=== PATIENT | female | born 1955 | race African-American/Black ===

== ENCOUNTER 2018-02-02 09:24 | Observation (INO) ==
[2018-02-02 12:22] LABS: Basophils # 0.1 10*3/uL (0.0-0.2); Basophils % 0.9 % (0.0-0.8); Eosinophils # 0.2 10*3/uL (0.0-0.87); Eosinophils % 4.1 % (0.00-10.9); Hematocrit 38.2 VOL% (35.7-47.0); Hemoglobin 12.8 GM/DL (12.0-16.0); Immature Granulocytes % 0.2 %; Immature Granulocytes Absolute 0.01 #; Lymphocytes # 3.1 10*3/uL (1.4-4.0); Lymphocytes % 54.9 % (21.3-54.2); Mean Corpuscular HGB Conc 33.5 GM/DL (32-36); Mean Corpuscular Hemoglobin 33 PG (27-34); Mean Corpuscular Volume 98.7 FL (87-102); Mean Platelet Volume 10.6 FL (9.6-12.0); Monocytes # 0.3 10*3/uL (0.11-0.8); Monocytes % 5.7 % (1.7-12.7); Neutrophils # 1.9 10*3/uL (1.4-7.4); Neutrophils % 34.2 % (38.7-73.9); Platelet Count 229 T/CUMM (130-400); Red Blood Count 3.87 MC/CUMM (3.8-5.5); Red Cell Distribution Width 12.3 % (9.3-17.3); White Blood Count 5.6 T/CUMM (4-12)
[2018-02-02 12:32] LABS: PT Patient Result 10.5 SECS
[2018-02-02 12:41] LABS: Hypochromasia 1+; Platelet Estimate Adequate
[2018-02-02 12:44] LABS: Albumin 3.8 G/DL (3.4-5.0); Bilirubin,Total 0.6 MG/DL (0.2-1.0); Calcium 9.3 MG/DL (8.5-10.1); Osmolality,Calculated 281.3 MOS/KG (273-304); Potassium 3.9 MMOL/L (3.5-5.1); Total Protein 7.4 G/DL (6.4-8.3)
[2018-02-02 12:45] LABS: Troponin I Only < 0.015 NG/ML (0.00-0.045)
[2018-02-02] MEDS ORDERED: MORPHINE 4 MG/1 ML VIAL IV PRN (17:12)
[2018-02-02] MEDS ORDERED: ACETAMINOPHEN 325 MG TABLET PO PRN (17:12)
[2018-02-02] MEDS ORDERED: ONDANSETRON 4 MG/2 ML VIAL IV PRN (17:12)
[2018-02-03 04:48] LABS: Basophils % 0.6 % (0.0-0.8); Eosinophils # 0.2 10*3/uL (0.0-0.87); Eosinophils % 4.3 % (0.00-10.9); Hematocrit 36.3 VOL% (35.7-47.0); Immature Granulocytes % 0.2 %; Immature Granulocytes Absolute 0.01 #; Lymphocytes # 2.7 10*3/uL (1.4-4.0); Lymphocytes % 54.5 % (21.3-54.2); Mean Corpuscular HGB Conc 33.1 GM/DL (32-36); Mean Corpuscular Hemoglobin 33 PG (27-34); Mean Corpuscular Volume 99.2 FL (87-102); Monocytes # 0.3 10*3/uL (0.11-0.8); Monocytes % 6.7 % (1.7-12.7); Neutrophils # 1.7 10*3/uL (1.4-7.4); Neutrophils % 33.7 % (38.7-73.9); Platelet Count 197 T/CUMM (130-400); Red Blood Count 3.66 MC/CUMM (3.8-5.5); Red Cell Distribution Width 12.3 % (9.3-17.3); White Blood Count 4.9 T/CUMM (4-12)
[2018-02-03 05:16] LABS: Calcium 8.7 MG/DL (8.5-10.1); Osmolality,Calculated 284.1 MOS/KG (273-304); Potassium 3.7 MMOL/L (3.5-5.1); Risk Ratio 3.8; VLDL CHOLESTEROL 38.2 MG/DL
[2018-02-03 05:39] LABS: Atypical Lymphocytes Few; Eosinophils 5 % (0-10); Lymphocytes 52 % (20-55); Platelet Estimate Adequate; Segmented Neutrophils 35 % (50-85); Total Cells Counted 100
[2018-02-03 05:40] LABS: Polychromasia Slight
[2018-02-03] MEDS: SODIUM CHLORIDE 0.45% 1,000 ML IV SCH ×2 (08:00→12:19)
[2018-02-03] MEDS ORDERED: PANTOPRAZOLE 40 MG TABLET PO SCH (09:00)
[2018-02-03] MEDS ORDERED: ASPIRIN EC 81 MG TABLET PO SCH (09:00)
[2018-02-03 11:43] VITALS: BP 129/82
== END 2018-02-03 14:09 | disposition home or self-care (01) ==
LOC: N.EDINP 09:24 → N.ED 09:24 → SUATTDRO 16:37 → N.5E 19:44
PROVIDERS: ADMIT Internal Medicine; ATTEND Internal Medicine

== ENCOUNTER 2018-11-04 14:29 | Inpatient (IN) ==
[2018-11-04] MEDS ORDERED: ACETAMINOPHEN 325 MG TABLET PO PRN (15:09)
[2018-11-04] MEDS ORDERED: BISACODYL 5 MG TABLET PO PRN (15:09)
[2018-11-04] MEDS ORDERED: ALBUTEROL/IPRATROPIUM 3 ML NEB RESP TX PRN (15:09)
[2018-11-04] MEDS ORDERED: HYDROmorphone 2 MG/1 ML VIAL IV PRN (15:09)
[2018-11-04] MEDS ORDERED: ONDANSETRON 4 MG/2 ML VIAL IV PRN (15:09)
[2018-11-04] MEDS ORDERED: traMADol 50 MG TABLET PO PRN (15:15)
[2018-11-04 15:42] LABS: Basophils # 0.1 10*3/uL (0.0-0.2); Basophils % 0.9 % (0.0-0.8); Eosinophils # 0.2 10*3/uL (0.0-0.87); Eosinophils % 3.4 % (0.00-10.9); Hematocrit 37.5 VOL% (35.7-47.0); Hemoglobin 12.2 GM/DL (12.0-16.0); Immature Granulocytes % 0.2 %; Immature Granulocytes Absolute 0.01 #; Lymphocytes # 2.4 10*3/uL (1.4-4.0); Lymphocytes % 40.5 % (21.3-54.2); Mean Corpuscular HGB Conc 32.5 GM/DL (32-36); Mean Corpuscular Hemoglobin 32 PG (27-34); Mean Corpuscular Volume 98.7 FL (87-102); Mean Platelet Volume 9.7 FL (9.6-12.0); Monocytes # 0.3 10*3/uL (0.11-0.8); Monocytes % 4.8 % (1.7-12.7); Neutrophils # 2.9 10*3/uL (1.4-7.4); Neutrophils % 50.2 % (38.7-73.9); Platelet Count 252 T/CUMM (130-400); Red Cell Distribution Width 13.4 % (9.3-17.3); White Blood Count 5.9 T/CUMM (4-12)
[2018-11-04 16:04] LABS: Osmolality,Calculated 282.3 MOS/KG (273-304); Potassium 3.7 MMOL/L (3.5-5.1)
[2018-11-04] MEDS: PIPERACILLIN/TAZOBACTAM 3,375 MG in SODIUM CHLORIDE 0.9% 100 ML IV SCH ×2 (16:08→23:25)
[2018-11-04] MEDS: LACTATED RINGERS 1,000 ML IV SCH (18:20)
[2018-11-04] MEDS: GABAPENTIN 300 MG CAPSULE PO SCH (21:48)
[2018-11-04] MEDS: ATORVASTATIN 40 MG TABLET PO SCH (21:48)
[2018-11-04] MEDS: PREGABALIN 50 MG CAPSULE PO SCH (21:48)
[2018-11-05] MEDS ORDERED: FAMOTIDINE 20 MG TABLET PO ONE (06:00)
[2018-11-05] MEDS ORDERED: DIAZEPAM 5 MG TABLET PO ONE (06:00)
[2018-11-05] MEDS ORDERED: LIDOCAINE 1%/EPI INJ 20 ML VIAL ONE (07:59)
[2018-11-05] MEDS: PIPERACILLIN/TAZOBACTAM 3,375 MG in SODIUM CHLORIDE 0.9% 100 ML IV SCH ×3 (08:02→23:08)
[2018-11-05] MEDS ORDERED: ONDANSETRON 4 MG/2 ML VIAL ONE (08:51)
[2018-11-05] MEDS ORDERED: KETOROLAC 30 MG/1 ML VIAL ONE (08:51)
[2018-11-05] MEDS ORDERED: DEXAMETHASONE 4 MG/1 ML VIAL ONE (08:51)
[2018-11-05] MEDS ORDERED: MIDAZOLAM 2 MG/2 ML VIAL ONE (08:51)
[2018-11-05] MEDS ORDERED: fentaNYL 100 MCG/2 ML VIAL ONE (08:51)
[2018-11-05] MEDS ORDERED: PROPOFOL 200 MG/20 ML VIAL IV ONE (08:51)
[2018-11-05] MEDS: POTASSIUM CHLORIDE 20 MEQ TABLET PO SCH (11:18)
[2018-11-05] MEDS: FLUTICASONE 50 MCG NASAL SPRAY 16 GM BOTTLE BOTH NARES SCH (11:18)
[2018-11-05] MEDS: FUROSEMIDE 40 MG TABLET PO SCH (11:18)
[2018-11-05] MEDS: CETIRIZINE 10 MG TABLET PO SCH (11:19)
[2018-11-05] MEDS: GABAPENTIN 300 MG CAPSULE PO SCH ×2 (11:19→20:50)
[2018-11-05] MEDS: LISINOPRIL 20 MG TABLET PO SCH (11:19)
[2018-11-05] MEDS: PREGABALIN 50 MG CAPSULE PO SCH ×2 (11:19→20:50)
[2018-11-05] MEDS: LEVOTHYROXINE 25 MCG TABLET PO SCH (11:19)
[2018-11-05] MEDS: PANTOPRAZOLE 40 MG TABLET PO SCH (11:19)
[2018-11-05] MEDS: ATORVASTATIN 40 MG TABLET PO SCH (20:50)
[2018-11-06] MEDS: LACTATED RINGERS 1,000 ML IV SCH ×3 (05:10→16:18)
[2018-11-06] MEDS: GABAPENTIN 300 MG CAPSULE PO SCH (10:39)
[2018-11-06] MEDS: LISINOPRIL 20 MG TABLET PO SCH (10:39)
[2018-11-06] MEDS: POTASSIUM CHLORIDE 20 MEQ TABLET PO SCH (10:39)
[2018-11-06] MEDS: LEVOTHYROXINE 25 MCG TABLET PO SCH (10:39)
[2018-11-06] MEDS: PANTOPRAZOLE 40 MG TABLET PO SCH (10:40)
[2018-11-06] MEDS: FUROSEMIDE 40 MG TABLET PO SCH (10:40)
[2018-11-06] MEDS: CETIRIZINE 10 MG TABLET PO SCH (10:40)
[2018-11-06] MEDS: PREGABALIN 50 MG CAPSULE PO SCH (10:40)
[2018-11-06] MEDS: FLUTICASONE 50 MCG NASAL SPRAY 16 GM BOTTLE BOTH NARES SCH (10:41)
[2018-11-06] MEDS: PIPERACILLIN/TAZOBACTAM 3,375 MG in SODIUM CHLORIDE 0.9% 100 ML IV SCH (10:48)
[2018-11-06 16:04] VITALS: BP 129/81
== END 2018-11-06 15:53 | disposition home health service (06) | DRG 364 ==
LOC: N.ED 14:29 → N.EDINP 15:09 → N.3E 16:12
PROVIDERS: ADMIT Surgery; ATTEND Surgery